=== PATIENT | male | born 1970 | race Caucasian/White ===

== ENCOUNTER 2022-02-09 08:30 | Day surgery (SDC) | payer OTHER ==
[~2022-02-09] VITALS: Ht 185.4 cm; Wt 104.3 kg
[2022-02-09] MEDS ORDERED: fentaNYL citrate 0.05 MG/ML VIAL ONE (11:20)
[2022-02-09] MEDS ORDERED: diphenhydrAMINE 50 MG/ML VIAL ONE (11:20)
[2022-02-09] MEDS ORDERED: LIDOCAINE 2% 100 MG/5 ML UJET TP ONE (11:20)
[2022-02-09] MEDS ORDERED: MIDAZOLAM 5 MG/5 ML VIAL ONE (11:20)
[2022-02-09] MEDS ORDERED: diphenhydrAMINE 50 MG/ML VIAL IVP ONE (14:40)
[2022-02-09] MEDS ORDERED: MIDAZOLAM 2 MG/2 ML VIAL IVP ONE (14:40)
== END 2022-02-09 13:19 | disposition home or self-care (01) ==
LOC: MOR 08:30 → MMU 08:31 → MOR 13:19
PROVIDERS: ATTEND Internal Medicine Gastroenterology
DX: K92.1 Melena (principal); K59.00 Constipation, unspecified; J45.909 Unspecified asthma, uncomplicated; Z90.49 Acquired absence of other specified parts of digestive tract; Z86.010 Personal history of colon polyps; Z79.899 Other long term (current) drug therapy
CPT/HCPCS: 43239; 45378; 87426; J1200; J2250; J3010; J7030